=== PATIENT | male | born 1990 | race Caucasian/White ===

== ENCOUNTER 2017-05-18 16:11 | Emergency (ER) | payer SELFPAY ==
[~2017-05-18] VITALS: Ht 177.8 cm; Wt 131.8 kg
[2017-05-18] MEDS ORDERED: IBUPROFEN 800 MG TABLET PO ONE (16:30)
[2017-05-18] MEDS ORDERED: LIDOCAINE HCL/PF 1% 2 ML VIAL IM ONE (16:30)
[2017-05-18] MEDS ORDERED: CefTRIAXone SODIUM 1 GM/VIAL IM ONE (16:30)
[2017-05-18 16:55] VITALS: BP 136/67
== END 2017-05-18 17:37 | disposition home or self-care (01) ==
LOC: EMS 16:13
DX: L03.317 Cellulitis of buttock (principal)
CPT/HCPCS: 96372; 99283; J0696; J3490